=== PATIENT | female | born 1935 | race Caucasian/White ===

== ENCOUNTER 2019-12-31 15:25 | Emergency (ER) | payer MEDICARE, OTHER ==
[2019-12-31] MEDS: Ondansetron 4 MG Tab.DIS PO ONE (15:36)
--- NOTE | 2019-12-31 15:55 | EDM.PDOC ---
ED HPI GENERAL MEDICAL PROBLEM - General Chief Complaint: General Stated Complaint: NAUSEA AND VOMITING Time Seen by Provider: 12/31/19 15:35 Source of Information: Reports: Patient History Limitations: Reports: No Limitations - History of Present Illness INITIAL COMMENTS - FREE TEXT/NARRATIVE: Patient comes into the emergency department with complaints of dizziness and nausea. Patient states that the dizziness and nausea started approximately 5 hours prior to arrival to the emergency department. She states that it was a sudden onset when she was up walking she turned her head to the right and she became dizzy and lightheaded. She felt like the room was spinning. She did not fall but she did need to sit down for she felt like she would lose her balance. Patient states she has been nauseated ever since. She feels like the room is constantly spinning. Patient Also states she has had issues with ambulation over the last 6 weeks where she had muscle spasms in her lower back that caused some significant discomfort. She states that she has been slowly resolving and has no major issues or concerns with her lower back and extremities any longer. Patient denies headache, blurred vision, dizziness with rest, chest pain, shortness of breath, GI upset, abdominal discomfort, peripheral edema, gait disturbance, or unilateral strength difference. The who is with the patient at the bedside states that she has not had any garbled speech or in ability to complete any comprehensible speech. Onset: Today Severity: Mild Improves with: Reports: Immobilization Worsens with: Reports: Movement Associated Symptoms: Reports: Headaches, Nausea/Vomiting - Related Data Allergies Allergy/AdvReac Type Severity Reaction Status Date / Time azithromycin [From Zithromax] Allergy Rash Verified 12/31/19 16:05 bee venom protein (honey bee) Allergy Anaphylactic Verified 12/31/19 16:05 Shock ciprofloxacin [From Cipro] Allergy Nausea and Verified 12/31/19 16:05 Vomiting cortisone Allergy Rash Verified 12/31/19 16:05 dipyridamole [From Aggrenox] Allergy UNKNOWN Verified 12/31/19 16:05 doxycycline Allergy Nausea and Verified 12/31/19 16:05 Vomiting erythromycin base Allergy Hives Verified 12/31/19 16:05 nitrofurantoin Allergy UNKNOWN Verified 12/31/19 16:05 prednisone Allergy Shortness Verified 12/31/19 16:05 of Breath Sulfa (Sulfonamide Allergy Hives Verified 12/31/19 16:05 Antibiotics) venom-honey bee Allergy Wheezing Verified 12/31/19 16:05 martin Allergy Bronchospas Uncoded 08/31/19 00:49 ms surgical tape Allergy Other Uncoded 08/31/19 00:49 Home Meds: Home Meds Acetaminophen 1 - 2 tab PO Q4HR PRN 03/04/17 [History] Albuterol [Proventil Neb Soln] 2.5 mg NEB QIDRT PRN 03/04/17 [History] Beclomethasone Dipropionate [Qvar] 1 puff INH BID 03/04/17 [History] Bisoprolol/Hydrochlorothiazide [Ziac 5-6.25 MG] 1 tab PO BEDTIME 03/04/17 [History] Calcium Carbonate/Vitamin D3 [Caltrate 600 Plus D3 Tablet] 2 tab PO BIDMEALS 03/04/17 [History] Dextran 70/Hypromellose [Artificial Tears] 1 drop OP Q2HR PRN 03/04/17 [History] EPINEPHrine [Epipen 2-Kieran] 1 syringe IM ASDIRECTED PRN 03/04/17 [History] Furosemide 1 tab PO DAILY 03/04/17 [History] Lidocaine [Lidoderm] 1 patch TP DAILY PRN 03/04/17 [History] Potassium Chloride [Klor-Con M20] 1 tab PO ASDIRECTED 03/04/17 [History] Simvastatin [Zocor] 20 mg PO BEDTIME 03/04/17 [History] dilTIAZem HCL [Diltiazem 24Hr ER (Cd)] 1 cap PO DAILY 03/04/17 [History] Acetaminophen [Acetaminophen 8 Hour] 1,300 mg PO BEDTIME 03/01/19 [History] Cyclobenzaprine [Flexeril] 0.5 - 1 tab PO Q12HR PRN 03/01/19 [History] Denosumab [Prolia] 60 mg SUBCUT ASDIRECTED 03/01/19 [History] Docusate Sodium/Sennosides [Senokot-S] 1 tab PO BEDTIME 03/01/19 [History] Omeprazole 20 mg PO BIDAC 03/01/19 [History] polyethylene glycoL 3350 [MiraLAX] 17 gm PO DAILY PRN 03/01/19 [History] Aspirin [Halfprin] 81 mg PO DAILY 08/31/19 [History] Past Medical History HEENT History: Reports: Allergic Rhinitis Other HEENT History: Moore's Palsy, PVD(posterior vitreous detachment), pseudophakia - bilat., Vitreous floaters, secondary cataract Right, Old retinal hemorrhage Left, Viteous hemorrhage Left, Hx of YAG laser capsulotomy of lens of Left eye. 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 BRVO (branch retinal vein occlusion) Cardiovascular History: Reports: High Cholesterol, Hypertension Respiratory History: Reports: Asthma Other Respiratory History: ho anaphylactic shock d/t insect sting Gastrointestinal History: Reports: Diverticulosis, Gastritis, GERD, Other (See Below) Other Gastrointestinal History: gastric ulcer Genitourinary History: Reports: Other (See Below) Other Genitourinary History: postmenopausal atrophic vaginitis CREATIVE GURU History: Reports: Other (See Below) Other CREATIVE GURU History: Postmenopausal atrophic vaginitis Musculoskeletal History: Reports: Arthritis, Osteoarthritis, Other (See Below) Other Musculoskeletal History: rotator cuff sprain & tear, osteopenia, osteoarthritis of left knee Neurological History: Reports: Other (See Below) Other Neuro History: Moore's palsy. Postherpatic neuralgia. bilateral carpal tunnel syndrome Psychiatric History: Reports: None Endocrine/Metabolic History: Reports: Obesity/BMI 30+ Hematologic History: Reports: None Immunologic History: Oncologic (Cancer) History: Reports: None Dermatologic History: Reports: None - Past Surgical History GI Surgical History: Reports: Colonoscopy, Other (See Below) Other GI Surgeries/Procedures: malignant neoplasm of sigmoid colon. Musculoskeletal Surgical History: Reports: Carpal Tunnel Other Musculoskeletal Surgeries/Procedures:: trigger thumb of right & left. Social & Family History - Family History Cardiac: Reports: Hypertension Other Cardiac Family History: mother Respiratory: Reports: Asthma Other Respiratory Family Hisory: father Musculoskeletal: Reports: Arthritis, Back pain, Chronic, Fibromyalgia, Osteoarthritis Other Musculoskeletal Family History: rhq-qanswecgrejahh-[id number] and chronic back pain and arthritis Neurological: Reports: CVA Other Neurological Family History: sister and mother- stroke - Caffeine Use Caffeine Use: Reports: Coffee - Living Situation & Occupation Living situation: Reports: (Has 3 children, 2 girls, 1 boy.), with Spouse Occupation: Retired (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 Respiratory: Reports: No Symptoms Cardiovascular: Reports: No Symptoms GI/Abdominal: Reports: No Symptoms : Reports: No Symptoms Musculoskeletal: Reports: No Symptoms Skin: Reports: No Symptoms Neurological: Reports: Dizziness Psychiatric: Reports: No Symptoms Hematologic/Lymphatic: Reports: No Symptoms Immunologic: Reports: No Symptoms ED EXAM, GENERAL - Physical Exam Exam: See Below Exam Limited By: No Limitations General Appearance: Alert, WD/WN, No Apparent Distress Head: Atraumatic, Normocephalic Neck: Normal Inspection, Supple, Non-Tender, Full Range of Motion Respiratory/Chest: No Respiratory Distress, Lungs Clear, Normal Breath Sounds, No Accessory Muscle Use, Chest Non-Tender Cardiovascular: Normal Peripheral Pulses, Regular Rate, Rhythm, No Rub Back Exam: Normal Inspection, Full Range of Motion Extremities: Normal Inspection, Normal Range of Motion, Non-Tender, No Pedal Edema, Normal Capillary Refill Neurological: Alert, Oriented, CN II-XII Intact, Normal Gait Psychiatric: Normal Affect, Normal Mood Skin Exam: Warm, Dry, Intact, Normal Color, No Rash Course - Orders/Labs/Meds Orders: Active Orders 24 hr Category Date Time Status EKG Documentation Completion [RC] STAT Care 12/31/19 16:05 Active COMPREHENSIVE METABOLIC PN,CMP [CHEM] Stat Lab 12/31/19 15:55 Received PRO B-TYPE NATRIUR PEPT,BNPPRO [CHEM] Stat Lab 12/31/19 15:55 Received TROPONIN I [CHEM] Stat Lab 12/31/19 15:55 Received Sodium Chloride 0.9% [Normal Saline] 1,000 ml Med 12/31/19 16:07 Active IV ONETIME Sodium Chloride 0.9% [Saline Flush] Med 12/31/19 16:05 Active 10 ml FLUSH ASDIRECTED PRN Peripheral IV Insertion Adult [OM.PC] Stat Oth 12/31/19 16:05 Ordered Medication Orders Sodium Chloride (Normal Saline) 1,000 mls @ 1,000 mls/hr IV ONETIME ONE Stop: 12/31/19 17:06 Last Admin: 12/31/19 16:28 Dose: 1,000 mls/hr Documented by: ISABEL Sodium Chloride (Saline Flush) 10 ml FLUSH ASDIRECTED PRN PRN Reason: Keep Vein Open Labs: Laboratory Tests 12/31/19 12/31/19 Range/Units 15:35 15:55 WBC 6.2 (4.0-10.0) x10^3/uL RBC 3.81 L (4.00-5.50) x10^6/uL Hgb 12.1 (12.0-16.0) g/dL Hct 36.0 (33.0-47.0) % MCV 94.5 H (78.0-93.0) fL MCH 31.8 (26.0-32.0) pg MCHC 33.6 (32.0-36.0) g/dL RDW Coeff of Esperanza 13.0 (10.0-15.0) % Plt Count 255 (130-400) x10^3/uL Neut % (Auto) 52.1 (50.0-80.0) % Lymph % (Auto) 32.4 (25.0-50.0) % Yates % (Auto) 11.9 H (2.0-11.0) % Eos % (Auto) 3.1 (0.0-4.0) % Baso % (Auto) 0.5 (0.2-1.2) % COVID-19 (CHRISS) Negative (NEGATIVE) Meds: Medications Generic Name Dose Route Start Last Admin Trade Name Freq PRN Reason Stop Dose Admin Sodium Chloride 1,000 mls @ 1,000 mls/hr 12/31/19 16:07 12/31/19 16:28 Normal Saline IV 12/31/19 17:06 1,000 mls/hr ONETIME ONE Administration Sodium Chloride 10 ml 12/31/19 16:05 Saline Flush FLUSH ASDIRECTED PRN Keep Vein Open Discontinued Medications Generic Name Dose Route Start Last Admin Trade Name Freq PRN Reason Stop Dose Admin Meclizine HCl 25 mg 12/31/19 16:06 12/31/19 16:28 Antivert PO 12/31/19 16:07 25 mg ONETIME ONE Administration Ondansetron HCl 4 mg 12/31/19 15:29 12/31/19 15:36 Zofran Odt PO 12/31/19 15:30 4 mg ONETIME ONE Administration Departure - Departure Time of Disposition: 17:00 Disposition: Home, Self-Care 01 Condition: Good Clinical Impression: Vertigo - Discharge Information *PRESCRIPTION DRUG MONITORING PROGRAM REVIEWED*: Not Applicable *COPY OF PRESCRIPTION DRUG MONITORING REPORT IN PATIENT LUNA: Not Applicable Instructions: How to Perform the Joey Maneuver, Vertigo, Apow-hj-Ueyr, Meclizine tablets or capsules Forms: ED Department Discharge Additional Instructions: 1. rest 2. increase your water intake 3. Continue all at home medications 4. Activity and diet as tolerated 5. Can take over the counter Tylenol for any pain or discomfort 6. Follow up with PCP if symptoms continue, return, or progress 7. Call with any questions or concerns 8. Can use Flonase daily for the next 7 days to help with allergies and fluid on the ears 9. Can also take Meclizine as needed for vertigo/dizziness symptoms - My Orders Last 24 Hours: My Active Orders 12/31/19 15:55 COMPREHENSIVE METABOLIC PN,CMP [CHEM] Stat PRO B-TYPE NATRIUR PEPT,BNPPRO [CHEM] Stat TROPONIN I [CHEM] Stat 12/31/19 16:05 EKG Documentation Completion [RC] STAT Sodium Chloride 0.9% [Saline Flush] 10 ml FLUSH ASDIRECTED PRN Peripheral IV Insertion Adult [OM.PC] Stat 12/31/19 16:07 Sodium Chloride 0.9% [Normal Saline] 1,000 ml IV ONETIME - Assessment/Plan Last 24 Hours: My Active Orders 12/31/19 15:55 COMPREHENSIVE METABOLIC PN,CMP [CHEM] Stat PRO B-TYPE NATRIUR PEPT,BNPPRO [CHEM] Stat TROPONIN I [CHEM] Stat 12/31/19 16:05 EKG Documentation Completion [RC] STAT Sodium Chloride 0.9% [Saline Flush] 10 ml FLUSH ASDIRECTED PRN Peripheral IV Insertion Adult [OM.PC] Stat 12/31/19 16:07 Sodium Chloride 0.9% [Normal Saline] 1,000 ml IV ONETIME Assessment:: 1. dizziness 2. vertigo Plan: 1. Labs completed in the ER. Results reviewed with the patient 2. Covid-19 testing completed- negative 3. Zofran given in the ER to help with nausea- with relief noted 4. NIH- 0, repeat NIH-0 5. Antivert PO given in ER for dizziness-with successful results. Patient feels she returned to baseline. 6. IV started 7. IV fluids provided in the ER 8. Patient and nursing staff was updated regarding the plan of care 9. Education provided the patient regarding activity, diet, rest, [id number] medication modalities, and follow-up care was provided 10. Patient and family are agreeable to the above plan of care 11. All questions and concerns were addressed with the patient and family prior to discharge
[2019-12-31] MEDS ORDERED: Sodium Chloride 0.9% 10 ML Syringe FLUSH PRN (16:05)
[2019-12-31] MEDS: Meclizine 25 MG Tab PO ONE (16:28)
[2019-12-31] MEDS: Sodium Chloride 0.9% 1,000 ML IV ONE (16:28)
[2019-12-31 16:51] LABS: ANION GAP 16.6 mmol/L (10-20)
== END 2019-12-31 17:25 | disposition home or self-care (01) ==
LOC: VM.ED 15:25
DX: R42 Dizziness and giddiness (principal); R11.2 Nausea with vomiting, unspecified; R51 Headache; E66.9 Obesity, unspecified; I10 Essential (primary) hypertension; J45.909 Unspecified asthma, uncomplicated; Z68.30 Body mass index [BMI] 30.0-30.9, adult; Z20.828 Contact with and (suspected) exposure to other viral communicable diseases; Z88.1 Allergy status to other antibiotic agents; Z91.030 Bee allergy status; Z88.2 Allergy status to sulfonamides; Z91.09 Other allergy status, other than to drugs and biological substances; Z79.82 Long term (current) use of aspirin; Z79.899 Other long term (current) drug therapy
CPT/HCPCS: 80053; 83880; 84484; 85025; 93005; 96360; 99284-25; A9270-GY; J7030; U0002

== ENCOUNTER 2022-02-16 09:47 | Emergency (ER) | payer MEDICARE, OTHER ==
[2022-02-16 10:38] LABS: CHLORIDE,CL 102 mmol/L (98-107); SODIUM,NA 142 mmol/L (136-145)
[2022-02-16 10:39] LABS: ANION GAP 13.2 mmol/L (5-15); ESTIMATED GFR 63 mL/min (>=60)
== END 2022-02-16 12:00 | disposition home or self-care (01) ==
LOC: VM.ED 09:47
DX: G51.0 Bell's palsy (principal); E78.00 Pure hypercholesterolemia, unspecified; I10 Essential (primary) hypertension; E66.9 Obesity, unspecified; Z68.30 Body mass index [BMI] 30.0-30.9, adult; Z88.1 Allergy status to other antibiotic agents; Z91.030 Bee allergy status; Z88.8 Allergy status to other drugs, medicaments and biological substances; Z88.2 Allergy status to sulfonamides; Z91.048 Other nonmedicinal substance allergy status; Z79.899 Other long term (current) drug therapy; Z90.710 Acquired absence of both cervix and uterus
CPT/HCPCS: 36415; 70450; 80053; 81003; 82550; 83735; 84484; 85025; 86140; 99284